=== PATIENT | male | born 1975 | race Caucasian/White ===

== ENCOUNTER 2018-01-26 06:08 | Day surgery (SDC) | payer OTHER ==
[~2018-01-26] VITALS: Ht 175.3 cm; Wt 89.8 kg
--- NOTE | ~2018-01-26 | O ---
[facility] [place] [address] OPERATIVE REPORT Name: AARTI ART Room #: DEP [facility].#: [id number] Admission: 01/26/18 Attend Phys: Raymond Salcido MD, Discharge: 01/26/18 Date of : 71 Report #: [id number] THIS REPORT FOR: //name// CC: Raymond Britt DATE OF SERVICE: 01/26/2018 PREOPERATIVE DIAGNOSIS: Incarcerated umbilical hernia. POSTOPERATIVE DIAGNOSIS: Incarcerated umbilical hernia. PROCEDURE: Laparoscopic repair of incarcerated umbilical hernia with mesh. SURGEON: Raymond Salcido M.D. FAMILY LAWYER: DIAN Rosa. ANESTHESIA: General endotracheal anesthesia. ESTIMATED BLOOD LOSS: Minimal (less than 5 mL). COMPLICATIONS: None appreciated. SPECIMENS: None. INDICATIONS: The patient is a 42-year-old male who presented with a long-standing history of umbilical bulging and pain that has worsened as of late. On exam, he has an obviously palpable umbilical hernia that appears to contain omentum and as such, indication was for the above-mentioned procedure today. DESCRIPTION OF PROCEDURE: After explaining the risks, benefits and alternatives of the procedure with the patient in detail in the preoperative holding area and obtaining written consent, the patient was brought to the operating room and placed supine on the operating room table. After conducting a thorough time-out procedure, verifying correct patient and procedure, the patient was given general endotracheal anesthesia. Once adequate anesthesia was obtained, his SCDs were hooked up to pneumatic compression device. He was given a preoperative dose of antibiotics in line with the SCIP protocol. The patient's abdomen was prepped and draped in standard surgical sterile fashion. A 5 mL of 0.5% Marcaine with epinephrine were used to anesthetize the skin in the left upper quadrant and midclavicular line in subcostal location. A #15 bladed scalpel was used to create a small skin nina at this location. A 5-mm Visiport was placed over a 0-degree 5-mm laparoscope and was introduced through this incision site. Once intra-abdominal placement was verified visually, the [address] [address] OPERATIVE REPORT Name: AARTI ART [id number] Admission: 01/26/18 Attend Phys: Raymond Salcido MD, Discharge: 01/26/18 Date of : 71 Report #: [id number] obturator for the trocar and laparoscope were both removed and the abdomen was insufflated to 15 mmHg using carbon dioxide gas. The laparoscope was changed to a 5-mm 30-degree laparoscope, which was re-introduced through this trocar. The entire abdomen was evaluated to ensure no injury upon entry. There was immediate evidence of incarcerated omentum as well as preperitoneal fat contained within the umbilical hernia. Two additional trocars were placed in left flank. A 12-mm port was placed lateral to the umbilicus at the anterior axillary line. An additional 5-mm port was placed in the left lower quadrant. Both additional trocars were placed under direct vision after anesthetizing the skin at each location with 5 mL of 0.5% Marcaine with epinephrine. I created appropriately sized skin nicks using #15 bladed scalpel. The laparoscope was removed, changed with a 12-mm port and Harmonic scalpel was used to skeletonize the posterior aspect of the anterior abdominal wall, which incorporated taking down the omentum, which was done with laparoscopic graspers to easily reduce this back into the abdomen. I took down the preperitoneal fat from this cephalad to inferior direction and once this was carried out as far inferiorly as possible, the hernia defect measured 1.5 x 1.5 cm in dimension. So as to attain overlap of at least 5 cm in all directions, an 11.4 cm mesh patch of Ventralight ST on the Echo positioning system was selected. This was rolled up, placed in the abdomen through the 12-mm port. The Sameer-David suture passer device was driven directly through the anterior abdominal wall through the center most portion of the hernia defect and was used to grasp the end eyelet of the balloon insufflation tubing which was pulled up, cut off and passed off the field. The syringe insufflator was then used to inflate the echo scaffolding and was tagged with a hemostat at the skin level, which held the entire mesh in close approximation, with the posterior aspect in the anterior abdominal wall. Insufflation pressure was reduced to 8 mmHg, and I now proceeded to circumferentially fix the mesh into place using the secure strap absorbable fixation device at 1 cm intervals around the periphery of the mesh as well as placing numerous tacks throughout the innermost portion of the mesh as well to hold the entire mesh in close approximation, with the posterior aspect in the anterior abdominal wall throughout. The hemostat was elevated externally and the tubing was cut and the echo scaffolding was removed via the 12-mm trocar. The preperitoneal fat flap was now placed back into the abdominal wall and tacked back into place overlying the mesh. Laparoscope was removed, changed the left upper quadrant trocar and I closed the 12-mm fascial incision using 0 PDS suture on a Sameer-David suture passer device. This was tied down under direct vision. The entire abdomen was evaluated one additional time. There was no further evidence of pathology. The abdomen was fully desufflated. All remaining trocars were removed under direct vision. A 4-0 Monocryl was used in a standard subcuticular fashion for all skin incisions and Dermabond glue was applied to all skin wounds. A tonsil ball was placed in the patient's umbilicus and covered with a Tegaderm to hopefully prevent seroma formation at the umbilicus. At the end of the procedure, all instrument, needle and sponge counts were correct. The patient tolerated the procedure without incident, was [address] [address] OPERATIVE REPORT Name: KAELYNAARTI Cherelle Room #: DEP [facility].#: [id number] Admission: 01/26/18 Attend Phys: Raymond Salcido MD, Discharge: 01/26/18 Date of : 71 Report #: [id number] awakened in the operating room and transitioned to the recovery room in stable condition, with no apparent complications. <ELECTRONICALLY SIGNED> By: Raymond Salcido MD, FACS 02/08/18 0902 [id number] [id number] Raymond Salcido MD, FACS /nt
[~2018-01-26 06:08] MED LIST: DEPRESSION; FLEXERIL PO; KEFLEX500 MG PO; LAMICTAL100 MG PO; NAPROSYN500 MG PO; NORCO 5-325 TA1 EACH PO; WELLBUTRIN XL300 MG PO
[2018-01-26 08:12] VITALS: BP 127/82
[2018-01-26] MEDS ORDERED: SENOKOT-S TABL1 EACH PO (11:44)
[2018-01-26] MEDS ORDERED: NEURONTIN 300300 M1 PO (11:44)
[2018-01-26] MEDS ORDERED: PERCOCET PO (11:44)
[2018-01-26 11:51] VITALS: BP 127/82
== END 2018-01-26 12:45 | disposition home or self-care (01) ==
LOC: OR 06:08 → TBA 06:08 → OR 10:18
DX: K42.0 Umbilical hernia with obstruction, without gangrene (principal); F31.9 Bipolar disorder, unspecified; Z88.8 Allergy status to other drugs, medicaments and biological substances; Z79.899 Other long term (current) drug therapy; Z98.818 Other dental procedure status; Z98.890 Other specified postprocedural states
CPT/HCPCS: 50010; 50101; 50249; 50386; 50555; 50558; 50962; 50980; 50984; 52265; 53307; 54022; 54118; 56462; 56525; 56526; 62110; 62900; 70005

== ENCOUNTER → 2020-07-20 | Outpatient (CLI) | payer OTHER ==
[~2020-07-20] MED LIST changes: +NEURONTIN 300300 M1 PO; +PERCOCET PO; +SENOKOT-S TABL1 EACH PO
[2020-07-20 08:42] LABS: URINE BILIRUBIN NEGATIVE (Negative); URINE BLOOD TRACE (Negative); URINE CLARITY CLEAR; URINE COLOR YELLOW; URINE GLUCOSE-RANDOM* NEGATIVE (Negative); URINE KETONES NEGATIVE (Negative); URINE LEUKOCYTES-REFLEX NEGATIVE (Negative); URINE NITRITE-REFLEX NEGATIVE (Negative); URINE PROTEIN (DIPSTICK) NEGATIVE (Negative); URINE SPECIFIC GRAVITY >= 1.030 (1.005-1.035); URINE UROBILINOGEN 0.2 E.U./dl (0.2-1.0)
[2020-07-20 08:48] LABS: BASOPHILS 1.4 % (0.0-2.0); EOSINOPHILS 2.6 % (0.0-3.0); HEMOGLOBIN 15.7 gm/dL (14.0-18.0); MCH 30.3 pg (26.0-34.0); MCHC 34.1 g/dL (28.0-37.0); MCV 88.9 fL (80.0-100.0); MONOCYTES 8.7 % (1.0-8.0); PLATELET COUNT 204 thou/uL (150-400); POLYS 60.3 % (36.0-66.0); RBC 5.17 mil/uL (4.50-6.00); WBC 6.7 thou/uL (4.0-11.0)
[2020-07-20 08:56] LABS: ANION GAP 6 mmol/L (7-16); BUN 12 mg/dL (7-18); CALCIUM 9.1 mg/dL (8.5-10.1); CHLORIDE 103 mmol/L (98-107); CHOLESTEROL 176 mg/dL (<200); CO2 29 mmol/L (21-32); CREATININE 1.1 mg/dL (0.7-1.3); GLUCOSE 102 mg/dL (74-106); HDL CHOLESTEROL 41 mg/dL (>40); LDL CHOLESTEROL 113 mg/dL (<100); POTASSIUM 3.8 mmol/L (3.5-5.1); SGOT 15 U/L (15-37); SGPT 31 U/L (30-65); SODIUM 138 mmol/L (136-145); TC:HDL 4.3 Ratio (Not establshd); TOTAL BILIRUBIN 0.6 mg/dL (0.2-1.0); TOTAL PROTEIN 7.7 g/dL (6.4-8.2); TRIGLYCERIDE 111 mg/dL (<150); VLDL 22 mg/dL (<40)
[2020-07-20 23:06] LABS: GLYCOHEMOGLOBIN (HGB A1C) 5.5 % (4.8-5.6)
== END ==
LOC: LAB 08:12
PROVIDERS: ATTEND Family Medicine
DX: Z00.00 Encounter for general adult medical examination without abnormal findings (principal)

== ENCOUNTER → 2020-10-22 | Outpatient (CLI) | payer OTHER ==
[2020-10-22 10:20] LABS: ABSOLUTE NEUTROPHILS 4.4 thou/uL (1.4-8.2); BASOPHILS 2.3 % (0.0-2.0); EOSINOPHILS 2.3 % (0.0-3.0); HEMATOCRIT 43.6 % (42.0-52.0); HEMOGLOBIN 15.1 gm/dL (14.0-18.0); LYMPHOCYTES 24.1 % (24.0-44.0); MCH 30.7 pg (26.0-34.0); MCHC 34.6 g/dL (28.0-37.0); MCV 88.7 fL (80.0-100.0); MONOCYTES 8.6 % (1.0-8.0); PLATELET COUNT 183 thou/uL (150-400); POLYS 62.7 % (36.0-66.0); RBC 4.92 mil/uL (4.50-6.00); RDW 12.8 % (10.5-14.5); WBC 6.9 thou/uL (4.0-11.0)
[2020-10-22 10:38] LABS: ANION GAP 8 mmol/L (7-16); BUN 9 mg/dL (7-18); CALCIUM 8.7 mg/dL (8.5-10.1); CHLORIDE 102 mmol/L (98-107); CHOLESTEROL 164 mg/dL (<200); CO2 32 mmol/L (21-32); CREATININE 1.3 mg/dL (0.7-1.3); GLUCOSE 76 mg/dL (74-106); HDL CHOLESTEROL 38 mg/dL (>40); LDL CHOLESTEROL 98 mg/dL (<100); POTASSIUM 3.6 mmol/L (3.5-5.1); SGOT 16 U/L (15-37); SGPT 29 U/L (30-65); SODIUM 142 mmol/L (136-145); TC:HDL 4.3 Ratio (Not establshd); TOTAL BILIRUBIN 0.7 mg/dL (0.2-1.0); TOTAL PROTEIN 7.7 g/dL (6.4-8.2); TRIGLYCERIDE 143 mg/dL (<150); VLDL 29 mg/dL (<40)
[2020-10-22 11:00] LABS: URINE BILIRUBIN NEGATIVE (Negative); URINE BLOOD TRACE (Negative); URINE CLARITY CLEAR; URINE COLOR YELLOW; URINE GLUCOSE-RANDOM* NEGATIVE (Negative); URINE KETONES NEGATIVE (Negative); URINE LEUKOCYTES-REFLEX NEGATIVE (Negative); URINE NITRITE-REFLEX NEGATIVE (Negative); URINE PROTEIN (DIPSTICK) NEGATIVE (Negative)
[2020-10-22 20:06] LABS: PSA 0.7 ng/mL (0.0-4.0); TESTOSTERONE* 255 ng/dL (264-916)
== END ==
LOC: LAB 09:38
PROVIDERS: ATTEND Family Medicine
DX: Z00.00 Encounter for general adult medical examination without abnormal findings (principal)

== ENCOUNTER 2020-10-26 09:24 | Inpatient (IN) | payer OTHER ==
[~2020-10-26] VITALS: Ht 177.8 cm; Wt 95.3 kg
[2020-10-26 09:28] VITALS: BP 147/102
[2020-10-26] MEDS ORDERED: LAMOTRIGINE200 MG PO (09:39)
[2020-10-26] MEDS ORDERED: TESTOSTERO200 MG/1 M IM (09:39)
[2020-10-26 09:52] LABS: ABSOLUTE NEUTROPHILS 4.6 thou/uL (1.4-8.2); BASOPHILS 1.1 % (0.0-2.0); EOSINOPHILS 1.5 % (0.0-3.0); HEMATOCRIT 45.1 % (42.0-52.0); HEMOGLOBIN 15.2 gm/dL (14.0-18.0); MCH 30.1 pg (26.0-34.0); MCHC 33.7 g/dL (28.0-37.0); MCV 89.3 fL (80.0-100.0); PLATELET COUNT 219 thou/uL (150-400); POLYS 57.4 % (36.0-66.0); RBC 5.05 mil/uL (4.50-6.00); RDW 13.1 % (10.5-14.5); WBC 8.1 thou/uL (4.0-11.0)
[2020-10-26 10:07] LABS: CALCIUM 9.2 mg/dL (8.5-10.1); CREATININE 1.4 mg/dL (0.7-1.3); POTASSIUM 3.5 mmol/L (3.5-5.1)
[2020-10-26 10:17] LABS: ALBUMIN 4.1 g/dL (3.4-5.0); TOTAL BILIRUBIN 0.9 mg/dL (0.2-1.0); TOTAL PROTEIN 7.9 g/dL (6.4-8.2)
[2020-10-26 11:20] LABS: URINE BILIRUBIN NEGATIVE (Negative); URINE BLOOD NEGATIVE (Negative); URINE CLARITY CLEAR; URINE COLOR YELLOW; URINE GLUCOSE-RANDOM* NEGATIVE (Negative); URINE KETONES TRACE (Negative); URINE LEUKOCYTES-REFLEX NEGATIVE (Negative); URINE NITRITE-REFLEX NEGATIVE (Negative); URINE PROTEIN (DIPSTICK) NEGATIVE (Negative); URINE UROBILINOGEN 0.2 E.U./dl (0.2-1.0)
[2020-10-26] MEDS ORDERED: LAMOTRIGINE250 MG PO (11:21)
[2020-10-26 11:35] LABS: AMP/METHAMP Negative (Negative); BARBITURATES Negative (Negative); BENZODIAZEPINES Negative (Negative); COCAINE Negative (Negative); METHADONE Negative (Negative); OPIATES Negative (Negative); PCP Negative (Negative)
--- NOTE | 2020-10-26 11:36 | 2DMMODE ---
[facility] [place] [address] 2 D/M-MODE ECHOCARDIOGRAM Name: AARTI ART Room #: REG Grecia#: [id number] Admission: 10/26/20 Attend Phys: Discharge: Date of : 71 Report #: [id number] THIS REPORT FOR: cc: Elton Britt MD, Neal A. MD Park, Jin S. MD ~ APPROVED REPORT Study performed: 10/26/2020 10:58:48 EXAM: Comprehensive 2D, Doppler, and color-flow Echocardiogram Patient Location: ER Status: routine BSA: 2.13 HR: 55 bpm BP: 140/94 mmHg Rhythm: NSR Other Information Study Quality: Adequate/flat on back. Indications Syncope/seizure. 2D Dimensions RVDd: 33.03 mm IVSd: 10.25 (7-11mm) LVOT Diam: 22.22 (18-24mm) LVDd: 49.82 mm PWd: 10.30 (7-11mm) Ascending Ao: 33.07 (22-36mm) LVDs: 34.38 (25-40mm) Left Atrium: 36.85 (27-40mm) Aortic Root: 37.43 mm Volumes Left Atrial Volume (Systole) Single Plane 4CH: 31.60 mL Single Plane 2CH: 47.37 mL LA ESV Index: 19.00 mL/m2 Aortic Valve AoV Peak Santosh.: 0.97 m/s AO Peak Gr.: 3.78 mmHg LVOT Max P.80 mmHg LVOT Max V: 0.98 m/s [facility] [address] [place] [address] 2 D/M-MODE ECHOCARDIOGRAM Name: AARTI ART Room #: KENN Paige#: [id number] Admission: 10/26/20 Attend Phys: Discharge: Date of : 71 Report #: [id number] CLAUDIA Vmax: 3.89 cm2 Mitral Valve E/A Ratio: 1.5 MV Decel. Time: 214.32 ms MV E Max Santosh.: 0.66 m/s MV A Santosh.: 0.45 m/s MV PHT: 62.15 ms IVRT: 106.11 ms Pulmonary Valve PV Peak Santosh.: 0.82 m/s PV Peak Gr.: 2.70 mmHg Pulmonary Vein P Vein S: 0.43 m/s P Vein A: 0.27 m/s P Vein D: 0.37 m/s P Vein A Dur.: 87.7 msec P Vein S/D Ratio: 1.16 Tricuspid Valve TR Peak Santosh.: 2.18 m/s TR Peak Gr.: 19.02 mmHg PA Pressure: 24.00 mmHg Left Ventricle The left ventricle is normal size. There is normal LV segmental wall motion. There is normal left ventricular wall thickness. Left ventricular systolic function is normal. LVEF is 60%. Right Ventricle The right ventricle is normal size. The right ventricular systolic function is normal. Atria The left atrium size is normal. The right atrium size is normal. Aortic Valve The aortic valve is normal in structure. No aortic regurgitation is present. There is no aortic valvular stenosis. Mitral Valve The mitral valve is normal in structure. Trace mitral regurgitation. Tricuspid Valve The tricuspid valve is normal in structure. Trace tricuspid [facility] [address] [place] [address] 2 D/M-MODE ECHOCARDIOGRAM Name: AARTI ART [facility]: [id number] Admission: 10/26/20 Attend Phys: Discharge: Date of : 71 Report #: [id number] regurgitation. Estimated PAP is 24mmHg. Pulmonic Valve The pulmonary valve is normal in structure. Trace pulmonic regurgitation. Great Vessels The aortic root is normal in size. The ascending aorta is normal in size. IVC is not well visualized. Pericardium There is no pericardial effusion. <Conclusion> The left ventricle is normal size. There is normal left ventricular wall thickness. Left ventricular systolic function is normal. The right ventricle is normal size. The left atrium size is normal. The aortic valve is normal in structure. Trace mitral regurgitation. Trace tricuspid regurgitation. Estimated PAP is 24mmHg. <ELECTRONICALLY SIGNED> By: Jeff Lee MD 10/26/20 1136 1136 35 Jeff Lee MD /MEME
[2020-10-26 12:05] VITALS: BP 137/90
--- NOTE | 2020-10-26 12:11 | EKG ---
[address] [address] ELECTROCARDIOGRAM REPORT Name: AARTI ART Room #: 170-4 ADM IN M.R.#: [id number] Admission: 10/26/20 Attend Phys: Elton Britt MD Discharge: Date of : 71 Report #: [id number] [facility] ED Test Date: 2020-10-26 Test Time: 09:26:50 Pat Name: AARTI ART Department: ER Room: 170 Gender: M Film Crew Member: MAXINE : 1975 Requested By: Adelfo Sarmiento Order Number: [id number] : Tawanda Haynes Measurements Intervals [place] Rate: 79 P: 50 KS: 162 QRS: 22 QRSD: 95 T: 24 QT: 365 QTc: 419 Interpretive Statements Sinus rhythm No previous ECG available for comparison Electronically Signed On 10-26-2020 12:11:28 CDT by Tawanda Haynes [email or web address] <ELECTRONICALLY SIGNED> By: Tawanda Haynes MD, [facility] 10/26/20 1211 0926 5 Tawanda Haynes MD, FACC /EPI
[2020-10-26 13:43] LABS: CHOLESTEROL 152 mg/dL (<200); HDL CHOLESTEROL 45 mg/dL (>40); LDL CHOLESTEROL 92 mg/dL (<100); TC:HDL 3.4 Ratio (Not establshd); TRIGLYCERIDE 76 mg/dL (<150); VLDL 15 mg/dL (<40)
[2020-10-26 14:30] VITALS: BP 137/90
[2020-10-26] MEDS ORDERED: LAMICTAL (GREE1 EACH PO (15:52)
--- NOTE | 2020-10-26 17:51 | NUR ---
ADMSSION NOTE: PT ALERT AND ORIENTED X4, DENIES CHEST PAIN, NAUSEA AND VOMITTING. PT STATED HAVING SOME CHEST HEAVINESS THIS AM, BU ITS A LITTLE BETTER. CS ASSOCIATE PLACE, SINUS RYTHM. SEIZURE PRECAUTIONS IN PLACE. ADMISSION AND ASSESSMENT COMPLETED. CONSENTS SIGNED BY PT. SKIN INTACT. PT WIFW AT BEDSIIDE. DENIES ANY NEEDS AT MOMENT.
[2020-10-26 19:53] VITALS: BP 129/82
--- NOTE | 2020-10-27 01:14 | NUR ---
ADMIT NOTE: RECIEVED PT VIA PERCY, PT PLACED IN BED , CARDIAC MONTIOR SHOWS NSR. DENIES SOA WHEN FROM [facility]. DISCUSSED PLAN OF CARE PT AGREEABLE. PO MEDICATION TAKEN, PT REQUESTED SLEEPING TABLET, CALL PLACED TO EXHIBITOR SALES , ORDER RECIEVED. WILL CONINTUE WITH POC AND ASN WILL EPORT CHANGES.
[2020-10-27 05:38] VITALS: BP 127/78
[2020-10-27 07:52] VITALS: BP 120/79
--- NOTE | 2020-10-27 10:35 | HC ---
[facility] [place] [address] CONSULTATION Name: AARTI ART Room #: 207-P ADM IN M.R.#: [id number] Admission: 10/26/20 Attend Phys: Elton Britt MD Discharge: Date of : 71 Report #: [id number] THIS REPORT FOR: cc: Elton Britt MD, Neal A. MD [place], Roxane S. DO ~ DATE OF SERVICE: 10/26/2020 NEUROLOGY CONSULTATION ROOM #: 207. 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 He was walking down the [place] for breakfast when he did not feel well. He sat on a bench, someone came up to him and then went off to get a wheelchair, so they can take him to the Emergency Room. The patient began to feel a tightness in his chest. He stood up, put his hands against the wall and then collapsed to the ground. There is a description of seizure-like activity, but no further description beyond that. The patient states it took him a minute or two to come to and then he was aware of everything that had gone on around him. Posturing was mentioned during the event. The patient has a history of bipolar disorder, is currently seeing a therapist. His family physician had prescribed a gradually increasing dose of lamotrigine. The patient was on 150 mg a day. The patient has bipolar disorder. The patient tells me that when he spoke to the therapist, the therapist thought that perhaps he had been in the media for 5 days. However, the patient also states that he also has very low periods as well. His was in the room and she states that the patient also has significant anxiety. His also related an episode of concussion perhaps 7-8 years ago. The patient was seen at [facility] and was put on Depakote, but the patient and his are not sure if he ever even took that medication. To his knowledge, he has never had a seizure before. He has no history of lapses in time or dizzy spells. PAST MEDICAL HISTORY: Bipolar disorder. PAST SURGICAL HISTORY: Negative. MEDICATIONS: Lamotrigine 150 mg daily. Testosterone 200 mg IM as directed. ALLERGIES: CODEINE. [address] [address] CONSULTATION Name: AARTI ART Room #: 207-[facility].#: [id number] Admission: 10/26/20 Attend Phys: Elton Britt MD Discharge: Date of : 71 Report #: [id number] VITAL SIGNS: Temperature 36.7, pulse rate 59, blood pressure 137/90 with an initial blood pressure of 147/102, bedside pulse oximetry 97%. LABORATORY DATA: Hematology: White blood cell count 8.1, hemoglobin 15.2, hematocrit 45.1, MCV 89.3, platelet count 219,000. Urinalysis: Trace ketones. Chemistry: Sodium 135, potassium 3.5, chloride 102, carbon dioxide 29, BUN 10, creatinine 1.4, GFR 54, glucose 96, calcium 9.2, total bilirubin 0.9, AST 19, ALT 27, alkaline phosphatase 60, total protein 7.9, albumin 4.1, triglycerides 76, cholesterol 152, LDL cholesterol 92, HDL cholesterol 45. Toxicology drug screen negative, serology COVID negative. IMAGING STUDIES: CT scan of the chest demonstrates no acute cardiopulmonary process. CT scan of the head demonstrates no acute intracranial abnormality. Carotid Doppler is normal. NEUROLOGIC: Cranial nerves II-XII grossly intact. Motor exam demonstrates symmetrical strength in all 4 extremities. The patient is able to lift his arms off the bed. He is able to lift each leg off the bed. Plantar responses are flexor. There is no evidence of dysmetria. Gait was not tested. ASSESSMENT AND PLAN: This patient has had a syncopal episode with seizure-like activity. Unfortunately, there is no description of this seizure activity. If the patient had had a generalized seizure, I would have expected his white blood cell count to be elevated, but in his case it was not. He does have a CT angiogram ordered for this evening to rule out aneurysm. I have ordered an EEG for Thursday. I will also order a CPK to see if his muscle enzymes were high during the event. I have not prescribed any antiepileptic medication. It is somewhat odd that he would have had a seizure on 150 mg of lamotrigine, although he is only taking it once a day. The patient also has bipolar disorder and I have put in a psychiatry consult, but I do not know if the psychiatrist sees patients on the weekend, so it may not be possible to do the Psychiatry consult. I thank you for your kind referral of the patient. <ELECTRONICALLY SIGNED> By: Chanell Viramontes DO 10/27/20 1035 1831 2214 Chanell Viramontes DO /nt
[2020-10-27 10:59] VITALS: BP 120/79
--- NOTE | 2020-10-27 13:29 | NUR ---
PT ALERT AND ORIENTED TIMES FOUR. VSS. PT DENIES PAIN/SOA. PT TOLERATES BREAKFAST. PT UP AB TORIE WITH STEADY GAIT. PT AT BEDSIDE. PLANS FOR DISCHARGE TODAY.
== END 2020-10-27 13:04 | disposition home or self-care (01) | DRG 312 ==
LOC: ER 09:24 → EROBS 11:51 → 2N 14:40
PROVIDERS: Emergency Medicine; Nurse Practitioner Adult Health; ADMIT Family Medicine; ATTEND Family Medicine
PROC: 4A00X4Z Measurement of Central Nervous Electrical Activity, External Approach (ICD-10-PCS; principal; 2020-10-27)
DX: R55 Syncope and collapse (principal); N17.9 Acute kidney failure, unspecified; R07.9 Chest pain, unspecified; Z20.822 Contact with and (suspected) exposure to COVID-19; Z79.899 Other long term (current) drug therapy; Z88.8 Allergy status to other drugs, medicaments and biological substances; F31.9 Bipolar disorder, unspecified
CPT/HCPCS: 10081

== ENCOUNTER → 2020-12-20 | Outpatient (CLI) | payer OTHER ==
[~2020-12-20] MED LIST changes: +LAMICTAL (GREE1 EACH PO; +LAMOTRIGINE200 MG PO; +LAMOTRIGINE250 MG PO; +TESTOSTERO200 MG/1 M IM
[2020-12-20 20:06] LABS: TESTOSTERONE* 1123 ng/dL (264-916)
== END ==
LOC: LAB 10:19
PROVIDERS: ATTEND Family Medicine
DX: E34.9 Endocrine disorder, unspecified (principal)

== ENCOUNTER → 2021-01-16 | Outpatient (CLI) | payer OTHER ==
[2021-01-17 05:07] LABS: TESTOSTERONE* 1250 ng/dL (264-916)
== END ==
LOC: LAB 11:33
PROVIDERS: ATTEND Family Medicine
DX: E34.9 Endocrine disorder, unspecified (principal)

== ENCOUNTER → 2021-04-05 | Outpatient (CLI) | payer OTHER ==
[2021-04-05 08:54] LABS: ABSOLUTE NEUTROPHILS 4.6 thou/uL (1.4-8.2); BASOPHILS 1.3 % (0.0-2.0); EOSINOPHILS 1.9 % (0.0-3.0); HEMATOCRIT 45.7 % (42.0-52.0); HEMOGLOBIN 15.6 gm/dL (14.0-18.0); LYMPHOCYTES 25.1 % (24.0-44.0); MCH 29.8 pg (26.0-34.0); MCHC 34.1 g/dL (28.0-37.0); MCV 87.5 fL (80.0-100.0); MONOCYTES 8.5 % (1.0-8.0); PLATELET COUNT 193 thou/uL (150-400); POLYS 63.2 % (36.0-66.0); RBC 5.22 mil/uL (4.50-6.00); RDW 13.7 % (10.5-14.5); WBC 7.2 thou/uL (4.0-11.0)
[2021-04-05 09:09] LABS: ALBUMIN 3.8 g/dL (3.4-5.0); ANION GAP 6 mmol/L (7-16); BUN 10 mg/dL (7-18); CALCIUM 8.6 mg/dL (8.5-10.1); CHLORIDE 103 mmol/L (98-107); CHOLESTEROL 153 mg/dL (<200); CO2 32 mmol/L (21-32); CREATININE 1.2 mg/dL (0.7-1.3); GLUCOSE 58 mg/dL (74-106); HDL CHOLESTEROL 37 mg/dL (>40); LDL CHOLESTEROL 91 mg/dL (<100); POTASSIUM 3.8 mmol/L (3.5-5.1); SGOT 15 U/L (15-37); SGPT 27 U/L (30-65); SODIUM 141 mmol/L (136-145); TC:HDL 4.1 Ratio (Not establshd); TOTAL BILIRUBIN 0.6 mg/dL (0.2-1.0); TOTAL PROTEIN 7.3 g/dL (6.4-8.2); TRIGLYCERIDE 127 mg/dL (<150); VLDL 25 mg/dL (<40)
[2021-04-06 08:08] LABS: GLYCOHEMOGLOBIN (HGB A1C) 5.4 % (4.8-5.6)
== END ==
LOC: LAB 08:04
PROVIDERS: ATTEND Family Medicine
DX: Z00.00 Encounter for general adult medical examination without abnormal findings (principal)